=== PATIENT | male | born 1970 | race Native Hawaiian/Other Pacific Islander ===

== ENCOUNTER 2020-07-21 10:20 | Outpatient (CLI) | payer BC, OTHER | END 2020-07-21 16:00 | disposition home or self-care (01) | LOC: INF 10:20 | PROVIDERS: ATTEND Internal Medicine | DX: Z23 Encounter for immunization (principal) | CPT/HCPCS: 96372 ==

== ENCOUNTER 2020-08-14 13:03 | Outpatient (CLI) | payer BC, OTHER | END 2020-08-14 23:59 | disposition home or self-care (01) | LOC: INF 13:03 | PROVIDERS: ATTEND Internal Medicine | DX: Z23 Encounter for immunization (principal) | CPT/HCPCS: 96372 ==